=== PATIENT | female | born 1965 | race Caucasian/White ===

== ENCOUNTER 2021-01-29 06:42 | Day surgery (SDC) | payer BC ==
[~2021-01-29 06:42] MED LIST: LACTATED RINGERS 1,000 ML IV SCH; LIDOCAINE 1% (10MG/ML) FOR IV START INTRADERMA PRN
[2021-01-29 07:17] VITALS: TEMP 97.7
[2021-01-29 07:19] LABS: Glucose,Whole Blood 126 mg/dL (75-99)
[2021-01-29] MEDS ORDERED: PROPOFOL 10 MG/ML 20 ML VIAL IV ONE (07:38)
--- NOTE | 2021-01-29 07:42 | P.GSHP ---
History of Present Illness H&P Date: 01/29/21 CHIEF COMPLAINT: Colon screen HISTORY OF PRESENT ILLNESS: The patient is a 55-year-old female who presents for colon screen. Lower endoscopy was offered for further evaluation and management. PAST MEDICAL HISTORY: Please see list. PAST SURGICAL HISTORY: Please see list. MEDICATIONS: Please see list. ALLERGIES: Please see list. SOCIAL HISTORY: No illicit drug use FAMILY HISTORY: No reports of Crohn disease or ulcerative colitis. REVIEW OF ORGAN SYSTEMS: CONSTITUTIONAL: No reports of fevers or chills. PHYSICAL EXAM: VITAL SIGNS: Stable GENERAL: Well-developed pleasant in no acute distress. HEENT: No scleral icterus. Extraocular movements grossly intact. Moist buccal mucosa. NECK: Supple without lymphadenopathy. CHEST: Unlabored respirations. Equal bilateral excursions. CARDIOVASCULAR: Regular rate and rhythm. Distal 2+ pulses. ABDOMEN: Soft, nontender, nondistended. MUSCULOSKELETAL: No clubbing, cyanosis, or edema. ASSESSMENT: 1. Colon screen. PLAN: 1. Recommend proceeding with a lower endoscopy Past Medical History Past Medical History: Diabetes Mellitus, Deep Vein Thrombosis (DVT) Additional Past Medical History / Comment(s): TAKING LOSARTAN FOR KIDNEY "TEAR". IBS. History of Any Multi-Drug Resistant Organisms: None Reported Additional Past Surgical History / Comment(s): D & C Past Anesthesia/Blood Transfusion Reactions: Motion Sickness Past Psychological History: No Psychological Hx Reported Smoking Status: Never smoker Past Alcohol Use History: None Reported Past Drug Use History: None Reported Medications and Allergies Home Medications Medication Instructions Recorded Confirmed Type Dapagliflozin/Metformin HCl 1 tab PO QAM 01/27/21 01/29/21 History [Xigduo Xr 10 mg-1,000 mg Tab] Dicyclomine [Bentyl] 10 mg PO DAILY PRN 01/27/21 01/29/21 History Insulin Glargine,Hum.rec.anlog 20 units SQ HS 01/27/21 01/29/21 History [Lantus Solostar Pen] Losartan [Cozaar] 25 mg PO QAM 01/27/21 01/29/21 History Vitamin B Complex 1 cap PO DAILY 01/27/21 01/29/21 History Allergies Allergy/AdvReac Type Severity Reaction Status Date / Time No Known Allergies Allergy Verified 01/29/21 06:59 Surgical - Exam Vital Signs Temp Pulse Resp BP Pulse Ox 97.7 F 82 18 124/56 98 01/29/21 07:06 01/29/21 07:06 01/29/21 07:06 01/29/21 07:06 01/29/21 07:06 Results - Labs Abnormal Lab Results - Last 24 Hours (Table) 01/29/21 Range/Units 07:15 POC Glucose (mg/dL) 126 H (75-99) mg/dL
--- NOTE | 2021-01-29 08:03 | P.PCN ---
Date of Procedure: 01/29/21 Description of Procedure: PREOPERATIVE DIAGNOSIS: Colonoscopy screening. POSTOPERATIVE DIAGNOSIS: Colonoscopy screening. Diverticulosis, sigmoid colon OPERATION: Colonoscopy to the cecum, ileocecal valve and appendiceal orifice. SURGEON: Saray Wei MD. ANESTHESIA: MAC. INDICATIONS: The patient is a 55-year-old female who presents for colonoscopy screening. Benefits and risks were described and informed consent was obtained. DESCRIPTION OF PROCEDURE: The patient had undergone Sutab prep. The patient had been brought into the operating room and laid in the left lateral decubitus position. After adequate intravenous sedation, the rectum was examined with 2% lidocaine jelly. No external hemorrhoids were encountered. The rectal tone was within normal limits. No lesions were palpated in the rectal vault. An Olympus colonoscope was advanced until the cecum, ileocecal valve and appendiceal orifice were clearly viewed. The prep was good. Moderate foaming of the colon prohibited during portion of the mucosa. Scattered diverticulosis was encountered. No colonic polyps were found. No evidence of focal colitis was found. Retroflexion of the scope demonstrated grade 1 internal hemorrhoids without active bleeding or inflammation. The colon was desufflated. The patient had tolerated the procedure well. Withdrawal time was over 6 minutes. FINDINGS: Aronchick preparation quality scale 2 (1-5) Internal hemorrhoids, grade 1 No external prolapsed hemorrhoids. No arteriovenous malformations. No adenomatous polyps. No focal colitis. RECOMMENDATIONS: Lower endoscopy in 5 years, 2025 Plan - Discharge Summary Discharge Rx Participant: No New Discharge Prescriptions: Continue Dapagliflozin/Metformin HCl [Xigduo Xr 10 mg-1,000 mg Tab] 1 tab PO QAM Dicyclomine [Bentyl] 10 mg PO DAILY PRN PRN Reason: IBS Losartan [Cozaar] 25 mg PO QAM Insulin Glargine,Hum.rec.anlog [Lantus Solostar Pen] 20 units SQ HS Vitamin B Complex 1 cap PO DAILY Discharge Medication List Dapagliflozin/Metformin HCl [Xigduo Xr 10 mg-1,000 mg Tab] 1 tab PO QAM 01/27/21 [History] Dicyclomine [Bentyl] 10 mg PO DAILY PRN 01/27/21 [History] Insulin Glargine,Hum.rec.anlog [Lantus Solostar Pen] 20 units SQ HS 01/27/21 [History] Losartan [Cozaar] 25 mg PO QAM 01/27/21 [History] Vitamin B Complex 1 cap PO DAILY 01/27/21 [History] Follow up Appointment(s)/Referral(s): Saray Wei MD [STAFF PHYSICIAN] - As Needed Patient Instructions/Handouts: Diverticulosis Diet (GEN), Diverticulosis (DC) Activity/Diet/Wound Care/Special Instructions: Repeat colonoscopy in 5 years, 2025 Discharge Disposition: HOME SELF-CARE
[2021-01-29 08:18] VITALS: BP 99/67; PULSE 66; RESP 16
== END 2021-01-29 08:45 | disposition home or self-care (01) ==
LOC: ORWHC2ENDO 06:42
PROVIDERS: ATTEND Surgery Plastic and Reconstructive Surgery
DX: Z12.11 Encounter for screening for malignant neoplasm of colon (principal)
CPT/HCPCS: 45378; J2704

== ENCOUNTER → 2021-10-23 | Outpatient (CLI) | payer BC ==
--- NOTE | 2021-10-24 10:37 | US ---
EXAMINATION TYPE: US arterial LE single level DATE OF EXAM: 10/23/2021 2:33 PM CLINICAL HISTORY: I73.9 PERIPHERAL VASCULAR DISEASE, UNSPECIFIED. Numbness diabetic. Doppler Waveforms: Right: Biphasic Left: Monophasic Ankle-Brachial Indices: Right: 0.9 Left: 0.9 Toe Brachial Indices: Right: 1.31 Left: 1.05 IMPRESSION: Normal study
== END | disposition home or self-care (01) ==
LOC: RADUSWWP 13:04
PROVIDERS: ATTEND Podiatrist Foot & Ankle Surgery
DX: I73.9 Peripheral vascular disease, unspecified (principal)
CPT/HCPCS: 93922